=== PATIENT | male | born 1990 | race African-American/Black ===

== ENCOUNTER 2017-02-04 23:05 | Emergency (ER) | payer OTHER ==
[2017-02-05 02:30] VITALS: BP 128/79
== END 2017-02-05 02:31 | disposition home or self-care (01) ==
LOC: ED 23:05
DX: S63.286A Dislocation of proximal interphalangeal joint of right little finger, initial encounter (principal); Y08.89XA Assault by other specified means, initial encounter; Y93.89 Activity, other specified; Y99.8 Other external cause status; Y92.89 Other specified places as the place of occurrence of the external cause
CPT/HCPCS: 90715; A4570; J0696; J2001